=== PATIENT | female | born 1970 | race Caucasian/White ===

== ENCOUNTER 2025-09-15 15:18 | Outpatient (CLI) | payer MEDICARE, MEDICAID ==
[~2025-09-15 15:18] MED LIST: ALBU8HFA PO; ASPI81TA52 PO; BUDE90AE4 IH; CYCL-394 PO; DULO20CA50 PO; GUAI600T45 PO; LEVO750T68 PO; PREG150C PO
--- NOTE | 2025-09-15 17:14 | RADIOLOGY REPORT ---
EXAM: MR MRI UPPER EXTREMITY RIGHT INDICATION: PAIN IN RIGHT SHOULDER TECHNIQUE: Multiplanar, multisequence MR images of the right shoulder were obtained in the absence of gadolinium contrast material. COMPARISON: None FINDINGS: [CORACOACROMIAL ARCH]: Mild capsular hypertrophy of the acromioclavicular joint. Intact coracoclavicular ligaments. Intact coracoacromial ligaments. Mild amount of subacromial/subdeltoid bursal distention. [ROTATOR CUFF]: Mild tendinosis of the superior rotator cuff. [BICEPS TENDON]: Intact without tenosynovitis. [LABRUM]: Intact. [CARTILAGE]: Subchondral edema of the posterior inferior glenoid likely reflecting overlying chondrosis incompletely characterized [GLENOHUMERAL JOINT]: No joint effusion. No intra-articular body. slight thickening of the axillary pouch correlate for adhesive capsulitis [BONES]: No acute fracture, osseous contusion, or aggressive focal osseous lesion. [MUSCLES]: Normal muscle bulk of the rotator cuff muscles. [NEUROVASCULAR/LYMPH NODES]: Normal. [OTHER]: None. IMPRESSION: 1. Mild subacromial/subdeltoid bursitis. 2. Mild tendinosis of the superior rotator cuff. 3. Mild thickening of the axillary pouch correlate for adhesive capsulitis.
== END 2025-09-15 23:59 | disposition home or self-care (01) ==
LOC: MRI02 15:18
PROVIDERS: ATTEND Nurse Practitioner Family
DX: M19.011 Primary osteoarthritis, right shoulder (principal); M67.813 Other specified disorders of tendon, right shoulder; R60.0 Localized edema; M25.511 Pain in right shoulder
CPT/HCPCS: 73221